=== PATIENT | male | born 1955 | race Caucasian/White ===

== ENCOUNTER → 2021-12-01 | Outpatient (CLI) | payer MEDICARE, BC ==
[2021-12-01] VITALS (13 sets, daily range): BP systolic 111–163; BP diastolic 75–118; PULSE 69–86; TEMP 97.9
[~2021-12-01] VITALS: Ht 193 cm; Wt 116.4 kg
[~2021-12-01] MED LIST: ASPIRIN 81M81 MG/TA2 PO; AZASAN75 MG PO; CARDI-OMEGA1000 MG PO; IMURAN 50MG TAB50 MG PO; JARDIANCE10 PO; LANTUS100 U/ML SQ; LIPITOR 10MG10 MG PO; MASON NATURAL1200 MG PO; PERCOCET 325 MG1 TA2 PO; PRIL40 PO; PROBIOTIC FORMU1 CAP PO; TOPROL XL 25MG25 MG PO; VITAMIN D31000 I1 PO; VITAMIN D32000 I1 PO; ZESTRIL2.5 MG PO
== END ==
LOC: COL.RAD 09:04
DX: K75.4 Autoimmune hepatitis (principal)
CPT/HCPCS: J3010

== ENCOUNTER → 2021-12-31 | Outpatient (CLI) | payer MEDICARE, BC ==
[~2021-12-31] VITALS: Ht 193 cm; Wt 113.8 kg
[2021-12-31] VITALS (9 sets, daily range): BP systolic 122–146; BP diastolic 78–98; PULSE 63–81; TEMP 97.6
--- NOTE | 2021-12-31 12:45 | NUR ---
pt positioned on ct table in prone position. Monitors applied.
--- NOTE | 2021-12-31 13:05 | NUR ---
Specimen obtained and placed in formalin by Dr Bueno. Specimen labeled.
--- NOTE | 2021-12-31 13:45 | NUR ---
Pt denies complaints bandaid unchanged. Pt out to car per wheelchair. Pt up and into car without assistance. Copy of discharge instructions sent with pt. Verbalized understanding of instructions.
== END ==
LOC: COL.RAD 11:50
DX: R22.2 Localized swelling, mass and lump, trunk (principal); R93.89 Abnormal findings on diagnostic imaging of other specified body structures
CPT/HCPCS: 32106